=== PATIENT | female | born 1995 | race Caucasian/White ===

== ENCOUNTER 2024-12-11 15:47 | Outpatient (CLI) | payer SELFPAY ==
[2024-12-11 21:32] LABS: Bacterial Vaginosis* Negative (Negative); Candida glab/krus NOT DETECTED (No Detected)
[2024-12-11 22:03] LABS: Chlamydia DNA Amplified* NOT DETECTED (No Detected); GC DNA Amplified* NOT DETECTED (No Detected)
[2024-12-14 03:38] LABS: HPV Source Cervix
[2024-12-19 10:59] LABS: Pap Test Digital Imaging Done
== END 2024-12-11 15:48 | disposition home or self-care (01) ==
PROVIDERS: Visit Provider Registered Nurse
DX: R35.0 Frequency of micturition (principal); N92.6 Irregular menstruation, unspecified; Z72.51 High risk heterosexual behavior; Z11.3 Encounter for screening for infections with a predominantly sexual mode of transmission; Z12.4 Encounter for screening for malignant neoplasm of cervix; Z11.51 Encounter for screening for human papillomavirus (HPV); Z11.4 Encounter for screening for human immunodeficiency virus [HIV]; Z11.59 Encounter for screening for other viral diseases
CPT/HCPCS: 81513; 86592; 86703; 86803; 87086; 87340; 87481; 87491; 87591; 87624; 87625; 87661; 88141; 88142; 88175

== ENCOUNTER 2024-12-25 15:04 | Outpatient (CLI) | payer SELFPAY | END 2024-12-25 15:05 | disposition home or self-care (01) | LOC: NFLDREF 15:05 | PROVIDERS: Visit Provider Registered Nurse | DX: R35.0 Frequency of micturition (principal) | CPT/HCPCS: 87086 ==

== ENCOUNTER 2025-02-26 15:53 | Outpatient (CLI) | payer SELFPAY ==
[2025-02-26 22:39] LABS: Chlamydia DNA Amplified* NOT DETECTED (No Detected); GC DNA Amplified* NOT DETECTED (No Detected)
== END 2025-02-26 15:54 | disposition home or self-care (01) ==
PROVIDERS: Visit Provider Registered Nurse
DX: Z11.3 Encounter for screening for infections with a predominantly sexual mode of transmission (principal)
CPT/HCPCS: 86592; 86703; 86803; 87340; 87491; 87591